=== PATIENT | female | born 1945 | race Caucasian/White ===

== ENCOUNTER → 2017-09-18 | Outpatient (CLI) | payer MEDICARE ==
[2017-09-18 08:39] LABS: HEMOGLOBIN 13.2 g/dL (12.2-16.2); LYMPH # 2.2 K/mm3 (0.7-4.5); LYMPH % 37.9 % (10-50.0)
[2017-09-18 09:59] LABS: BUN 12 mg/dL (7-18)
[2017-09-18 10:20] LABS: GFR (ESTIMATED) 82 ML/MIN (59-)
== END ==
LOC: LAB 08:13
PROVIDERS: Internal Medicine Adolescent Medicine
DX: R06.02 Shortness of breath (principal); Z00.00 Encounter for general adult medical examination without abnormal findings; Z79.899 Other long term (current) drug therapy